=== PATIENT | female | born 1975 | race Two or more races ===

== ENCOUNTER 2018-10-10 13:36 | Emergency (ER) | payer MEDICAID ==
[~2018-10-10] VITALS: Ht 152.4 cm; Wt 53.0 kg
[2018-10-10] MEDS ORDERED: SODIUM CHLORIDE 0.9% 1,000 ML IV ONE (14:09)
[2018-10-10] MEDS ORDERED: ONDANSETRON HCL 4MG/2ML INJ IV ONE (14:30)
[2018-10-10] MEDS ORDERED: MORPHINE SULFATE 4 MG/ML CPJ (NOT FOR IM USE) IV ONE (14:30)
[2018-10-10 14:34] LABS: CHLORIDE 107 mEq/L (98-107)
[2018-10-10 14:35] LABS: HEMATOCRIT. 34.5 % (36.0-48.0); HEMOGLOBIN. 11.1 g/dL (12.0-16.0); MEAN CORPUSCULAR HEMOGLOBIN 26.2 pg (28.0-32.0); MEAN CORPUSCULAR VOLUME 81.6 fL (81.0-99.0); MEAN PLATELET VOLUME 7.4 fl (7.4-10.4); PLATELET 292 x1000/uL (130-400); RED BLOOD CELL COUNT 4.22 mill/uL (4.2-5.4); RED CELL DISTRIBUTION WIDTH 26.9 % (11.6-14.6)
[2018-10-10 14:41] LABS: ETHANOL BLOOD < 10 mg/dL
[2018-10-10 14:45] LABS: CREATINE KINASE 68 IU/L (26-192)
[2018-10-10 16:03] LABS: CLARITY URINE CLOUDY (CLEAR); COLOR URINE YELLOW (YELLOW); KETONES URINE NEGATIVE (NEGATIVE); LEUKOCYTE ESTERASE URINE NEGATIVE (NEGATIVE); NITRITE URINE NEGATIVE (NEGATIVE); OCCULT BLOOD URINE NEGATIVE (NEGATIVE); PROTEIN URINE NEGATIVE (NEGATIVE); SPECIFIC GRAVITY URINE 1.026 (1.005-1.030); UROBILINOGEN URINE 0.2 E.U./dL (0.2-1.0)
[2018-10-10 16:23] LABS: *BARBITURATES SCREEN URINE NEGATIVE (NEGATIVE)
[2018-10-10 16:24] LABS: *AMPHETAMINES SCREEN URINE NEGATIVE (NEGATIVE); *BENZODIAZEPINES SCREEN URINE NEGATIVE (NEGATIVE); *COCAINE SCREEN URINE NEGATIVE (NEGATIVE); METHADONE URINE SCREEN NEGATIVE (NEGATIVE); PHENCYCLIDINE URINE SCREEN NEGATIVE (NEGATIVE)
[2018-10-10 16:25] LABS: CANNABINOID URINE SCREEN NEGATIVE (NEGATIVE)
[2018-10-10 16:29] LABS: PLATELET ESTIMATE NORMAL
[2018-10-10 16:30] LABS: OPIATES URINE SCREEN PRESUMTIVE POSITIVE (NEGATIVE)
[2018-10-10] MEDS ORDERED: MORPHINE SULFATE 10 MG/ML CPJ IM ONE (16:45)
[2018-10-10 17:03] VITALS: BP 116/82
== END 2018-10-10 17:46 | disposition home or self-care (01) ==
LOC: ER 13:36
DX: C50.912 Malignant neoplasm of unspecified site of left female breast (principal); R53.1 Weakness; Z90.12 Acquired absence of left breast and nipple
CPT/HCPCS: 36415; 71045; 80053; 80305; 80320; 81003; 82550; 83605; 84484; 85025; 93005; 96372; 96374; 96375; 99284; J2270; J2405; J7030; G0480